=== PATIENT | female | born 1955 | race Caucasian/White ===

== ENCOUNTER → 2016-12-12 | Outpatient (CLI) | payer OTHER ==
--- NOTE | 2016-12-12 10:39 | RADRPT ---
EXAM DATE/TIME: 12/12/2016 00:00 [place] COMPARISON: No previous studies available for comparison. INDICATIONS : Dysphagia, coughing and choking with liquids and solids, frequent vomiting FLUORO TIME: 1.7 minutes IMAGE COUNT: 0 CONTRAST: Dose as prescribed by speech pathologist. MEDICAL HISTORY : Gastroesophageal reflux disease. multiple esophageal dilations SURGICAL HISTORY : None. ENCOUNTER: Initial ACUITY: 2 months PAIN SCORE: 0/10 LOCATION: Bilateral esophagus FINDINGS: A modified barium swallow was performed with speech pathology. Patient was given a variety of liquids to swallow. No aspiration or dysmotility is identified. There is some mild distortion related to a osteophyte of C5. For a full detailed report, see report by the speech pathologist. CONCLUSION: Normal examination. Adrien hCe MD on December 12, 2016 at 10:36 Board Certified Radiologist. This report was verified electronically.
== END ==
LOC: HRAD 09:15
DX: R13.10 Dysphagia, unspecified (principal)
CPT/HCPCS: 74230; 92611; G8996; G8997; G8998

== ENCOUNTER → 2016-12-22 | Outpatient (CLI) | payer OTHER ==
[2016-12-22 07:25] LABS: AUTOMATED NEUTROPHIL # 3.4 TH/MM3 (1.8-7.7); BASOPHIL % 0.9 % (0.0-2.0); EOSINOPHIL # 0.1 TH/MM3 (0-0.4); EOSINOPHIL % 2.7 % (0.0-4.0); HEMATOCRIT 37.3 % (35.0-46.0); HEMO FLAGS DIFF FINAL; LYMPH % 25.4 % (9.0-44.0); LYMPHOCYTE # 1.4 TH/MM3 (1.0-4.8); MEAN CELL VOLUME 88.6 FL (80.0-100.0); MEAN CORPUSCULAR HEMOGLOBIN 29.2 PG (27.0-34.0); MONO % 8.5 % (0.0-8.0); NEUT % 62.5 % (16.0-70.0); PLATELET COUNT 280 TH/MM3 (150-450); RED BLOOD COUNT 4.21 MIL/MM3 (4.00-5.30); RED CELL DISTRIBUTION WIDTH 13.5 % (11.6-17.2); WHITE BLOOD COUNT 5.4 TH/MM3 (4.0-11.0)
[2016-12-22 07:40] LABS: ANION GAP 6 MEQ/L (5-15); BICARBONATE 25.9 MEQ/L (21.0-32.0); BLOOD UREA NITROGEN 21 MG/DL (7-18); CHLORIDE 107 MEQ/L (98-107); GLOMERULAR FILTRATION RATE 72 ML/MIN (>89); GLUCOSE,FASTING 95 MG/DL (74-99); POTASSIUM 4.3 MEQ/L (3.5-5.1); SODIUM (NA) 139 MEQ/L (136-145)
[2016-12-22 07:41] LABS: ALT (GPT) 31 U/L (10-53); AST (GOT) 22 U/L (15-37)
[2016-12-22 07:51] LABS: ALKALINE PHOSPHATASE 86 U/L (45-117); HDL CHOLESTEROL 79.6 MG/DL (40.0-60.0); LDL CHOLESTEROL 136 MG/DL (0-99); TOTAL BILIRUBIN ADULT 0.6 MG/DL (0.2-1.0)
== END ==
LOC: CLAB 06:49
PROVIDERS: ATTEND Family Medicine
DX: R13.10 Dysphagia, unspecified (principal); K21.0 Gastro-esophageal reflux disease with esophagitis
CPT/HCPCS: 36415; 80053; 80061; 84443; 85025

== ENCOUNTER → 2017-01-26 | Outpatient (CLI) | payer OTHER ==
[~2017-01-26] VITALS: Ht 167.6 cm; Wt 71.8 kg
[~2017-01-26] MED LIST: CHLORHEXIDINE GLUCONATE 2 % 1 PACK (2 CLOTHS) TOPICAL PRN; INSULIN HUMAN REGULAR 1,000 UNITS/10 ML VIAL SQ PRN; LACTATED RINGER'S 1000 ML IV PRN; METOPROLOL TARTRATE 25 MG TAB PO PRN; POVIDONE IODINE 5% (ANTISEPSIS KIT) 4 APPLICATIONS EACH NARE PRN; PROPOFOL 200 MG/20 ML AMP IV ONE; SODIUM CHLORID 0.9% 500 ML IV PRN
--- NOTE | 2017-01-26 10:31 | GIPROC ---
[facility] [address] [facility]. [facility] [place], [address] EGD PROCEDURE REPORT EXAM DATE: 01/26/2017 PATIENT NAME: Drea Reynolds MR #: [id number] BIRTHDATE: 1955 ATTENDING: Pierce Lee MD ORDER #: [id number] RAIL LAYER: Ron Berg and Graciela Weston STATUS: outpatient INDICATIONS: The patient is a 61 yr old female here for an EGD due to Dsyphagia, about 5 minutes after eating. History of a Schatzki ring, biopsied and dilated Jan, 2016; esophageal biopsies at that time had revealed 9 eosionphils/high powered field. She has a cervical osteophyte. She's experiencing intermittent early satiety and emesis and regurgitation. PPI's haven't helpes symptoms fully. PROCEDURE PERFORMED: EGD w/ biopsy EGD w/ dilation of esophagus via guidewire MEDICATIONS: Per Anesthesia. TOPICAL ANESTHETIC: None CONSENT: The patient understands the risks and benefits of the procedure and understands that these risks include, but are not limited to: sedation, allergic reaction, infection, perforation and/or bleeding. Alternative means of evaluation and treatment include, among others: physical exam, x-rays, and/or surgical intervention. The patient elects to proceed with this endoscopic procedure. medical equipment was checked for proper function. Hand hygiene and appropriate measures for infection prevention was taken. After the risks, benefits and alternatives of the procedure were thoroughly explained, Informed consent was verified, confirmed and timeout was successfully executed by the treatment team. The patient was anesthetized with topical anesthesia and the Pentax EG-[id number] endoscope was introduced through the mouth and advanced to the second portion of the duodenum. Retroflexion was performed and was normal The gastroscope was then slowly withdrawn and removed. ESOPHAGUS: A subtle ringed appearance was noted in the mid-esophagus; biopsies were taken to check for eosinophilic esophagitis. A Schatzki ring was again noted at the EG junction with no evidence of reflux esophagitis or Smith's mucosa. STOMACH: The mucosa of the stomach appeared normal. A mild to moderate amount of bile was present in the stomach. DUODENUM: The duodenal mucosa appeared normal. Over a guidewire, an 18mm Savary dilator was passed with mild to moderate resistance met in the proximal esophagus. ADVERSE EVENTS: There were no complications. IMPRESSIONS: 1. A subtle ringed appearance was noted in the mid-esophagus; biopsies were taken to check for eosinophilic esophagitis 2. A Schatzki ring was again noted at the EG junction with no evidence of reflux esophagitis or Smith's mucosa 3. The mucosa of the stomach appeared normal. Bile in the stomach suggests a degree of gastroparesis. 4. Normal duodenal mucosa 5. Retroflexion was performed and was normal 6. Esophagus dilated with an 18mm Savary dilator with resistance met int the proximal esophagus, suggesting cricopharyngeal achalasia and/or extrinsic compression, related to the osteophyte. RECOMMENDATIONS: Resume anti-reflux regimen Avoid cold fluid/foods and drink warm liquid, especially before and with pills and meals. Gastroparesis diet. Begin bethanechol to improve gastric emptying. PATIENT CONDITION: stable DISPOSITION: Home REPEAT EXAM: Return as needed for EGD with dilatation Pierce Lee MD eSigned: Pierce Lee MD 01/26/2017 10:31 AM cc: Veena Roberts M.D. PATIENT NAME: Drea Reynolds MR#: [id number]
[2017-01-26 11:05] VITALS: BP 132/61; PULSE 73; RESP 18; TEMP 98.7; O2SAT 100
== END ==
LOC: HSDC 08:08
DX: R13.10 Dysphagia, unspecified (principal); K22.2 Esophageal obstruction; R68.81 Early satiety; R11.2 Nausea with vomiting, unspecified
CPT/HCPCS: 00740; 43239; 43248; 88305; C1769; J7120